=== PATIENT | male | born 1975 | race Two or more races ===

== ENCOUNTER 2020-10-18 06:08 | Emergency (ER) | payer MEDICAID, OTHER ==
[~2020-10-18] VITALS: Ht 177.8 cm; Wt 90.0 kg
--- NOTE | 2020-10-18 06:45 | NUR ---
Report from [facility], lab drawing blood. Requested urine. pt denies si/hi
[2020-10-18 06:58] LABS: BASOPHILS % (AUTO) 1 % (0-1); EOSINOPHILS % (AUTO) 0 % (1-7); LYMPHOCYTES % (AUTO) 11 % (22-44); MEAN CORPUSCULAR HEMOGLOBIN 32.5 pg (27.5-34.5); MEAN CORPUSCULAR HGB CONC 34.1 g/dL (33.2-36.2); MEAN PLATELET VOLUME 8.3 fL (7.4-10.4); MONOCYTES % (AUTO) 9 % (2-9); NEUTROPHILS % (AUTO) 79 % (42-75); PLATELET COUNT 260 x10^3/uL (130-400); RED BLOOD COUNT 4.37 x10^6/uL (4.38-5.82); RED CELL DISTRIBUTION WIDTH 13.1 % (9.4-14.8)
--- NOTE | 2020-10-18 06:59 | NUR ---
Gave large water to encourage urine sample.
[2020-10-18 07:10] LABS: ALBUMIN 3.7 g/dL (3.4-5.0); ANION GAP 5 mmol/L (5-15); CALCIUM 8.4 mg/dL (8.5-10.1); CHLORIDE 110 mmol/L (98-107)
[2020-10-18 07:13] LABS: ALANINE AMINOTRANSFERASE 29 U/L (12-78); ALKALINE PHOSPHATASE 79 U/L (45-117); BILIRUBIN,TOTAL 0.4 mg/dL (0.2-1.0); TOTAL PROTEIN 7.2 g/dL (6.4-8.2)
[2020-10-18 07:16] LABS: SALICYLATE LEVEL < 1.7 mg/dL (2.8-20.0)
--- NOTE | 2020-10-18 07:50 | NUR ---
Pt walks with steady gait to bathroom, provided urine sample. Collected/sent.
[2020-10-18 08:14] LABS: AMPHETAMINE SCREEN, URINE Negative (Negative); BARBITURATE SCREEN, URINE Negative (Negative); BENZODIAZEPINE SCREEN, URINE Negative (Negative); CANNABINOID SCREEN, URINE Negative (Negative); COCAINE SCREEN, URINE Negative (Negative); METHADONE SCREEN, URINE Negative (Negative); OPIATE SCREEN, URINE Negative (Negative)
--- NOTE | 2020-10-18 08:38 | NUR ---
Breakfast provided. Waiting for psych eval; pt denies any SI/HI.
--- NOTE | 2020-10-18 10:48 | NUR ---
Pt has friend here, pt gives permission to discuss POC. Friend told he is allowed to bring in food for pt and updated on waiting for psych OUT OF TOWN COLLECTION CLERK evaluation. Pt denies any SI/HI.
--- NOTE | 2020-10-18 11:06 | NUR ---
Pt says he was feeling suicidal like he wasn't worth living last week, he says he no longer feels that way. Pt says he lives with his parents who are "hoarders" and they "don't let me come out of my room". Pt says "I am not allowed to move out". Pt takes prozac 20-30mg but has been out lately and would like a refill. Pt has had multiple friends and family members calling the ER to check on him and pt states [place]
--- NOTE | 2020-10-18 11:46 | NUR ---
hide and skin processing worker andrae at bedside for evaluation.
--- NOTE | 2020-10-18 12:30 | NUR ---
PAVEL Marroquin here to interview.
--- NOTE | 2020-10-18 12:56 | NUR ---
Lunch provided to pt, Cara at bedside.
--- NOTE | 2020-10-18 13:00 | NUR ---
Per elizabeth pt on L2k, Room being secured belongings to storage.
--- NOTE | 2020-10-18 13:02 | NUR ---
Note undone in EDM - 10/18/20 at 1311 by [email or web address] PT PLACED ON L2K BY ADRIAN ZHAO, AFTER PT HISTORY AND ASSESSMENT. PT NOTIFIED IN POC. PT BECAME AGITATED AFTER L2K AND DOES "NOT WANT TO BE HELD". PT CALM AGAIN AT THIS TIME. CONTINUOUS MINING MACHINE OPERATOR CASEY NOTIFIED OF NEED FOR SITTER. PT ROOM SECURED FOR PT AND STAFF SAFETY AT THIS TIME. PT BELONGINGS COLLECTED AND PLACED IN 1 OF 1 BAGS AND BELONGINGS LOCKED IN SECURE STORAGE. PT DENIES ANY OTHER NEEDS AT THIS TIME. AWAITING NEW ORDERS.
--- NOTE | 2020-10-18 13:05 | NUR ---
Report to LILI Ahumada
--- NOTE | 2020-10-18 13:11 | NUR ---
PT PLACED ON L2K BY ADRIAN ZHAO, AFTER PT HISTORY AND ASSESSMENT. PT NOTIFIED IN POC. PT BECAME AGITATED AFTER L2K AND DOES "NOT WANT TO BE HELD". PT CALM AGAIN AT THIS TIME. FORCER MAKER SOCORRO NOTIFIED OF NEED FOR SITTER. PT ROOM SECURED FOR PT AND STAFF SAFETY AT THIS TIME. PT BELONGINGS COLLECTED AND PLACED IN 1 OF 1 BAGS AND BELONGINGS LOCKED IN SECURE STORAGE. PT DENIES ANY OTHER NEEDS AT THIS TIME. AWAITING NEW ORDERS.
[2020-10-18] MEDS ORDERED: HALOPERIDOL 5 MG TABLET ONE (13:24)
--- NOTE | 2020-10-18 13:28 | NUR ---
REPORT OF PT FROM LILI REN. ASSUMING CARE OF PT AT THIS TIME. PT MEDICATED PER MAY.
[2020-10-18] MEDS ORDERED: HALOPERIDOL 5 MG TABLET PO ONE (13:30)
[2020-10-18] MEDS ORDERED: BENZTROPINE 1 MG TABLET PO ONE (13:30)
[2020-10-18] MEDS ORDERED: BENZTROPINE 1 MG TABLET ONE (13:40)
--- NOTE | 2020-10-18 13:41 | NUR ---
PT MEDICATED PER MAR.
--- NOTE | 2020-10-18 14:25 | NUR ---
PT ASLEEP IN [facility] AT THIS TIME;
--- NOTE | 2020-10-18 15:56 | NUR ---
Throughput RN: pt has been medically cleared. patient is self pay. information faxed to [facility]
--- NOTE | 2020-10-18 16:34 | NUR ---
PT ASLEEP IN [facility] AT THIS TIME; KANE. SITTER OUTSIDE OF PT ROOM FOR DIRECT OBSERVATION OF PT. PER MAURO CAMPBELL, PT KEYS WERE SENT HOME WITH FAMILY AND ARE NOT IN PT BELONGINGS AT THIS TIME.
--- NOTE | 2020-10-18 17:16 | NUR ---
REPORT OF PT TO LILI WILKINS. ALL QUESTIONS ANSWERED.
--- NOTE | 2020-10-18 17:37 | NUR ---
REPORT FROM EROS PEREZ GIVEN PILLOW FOR COMFORT. PT TO BATHROOM. SITTER PRESENT
--- NOTE | 2020-10-18 17:59 | NUR ---
HOSPITAL BED ORDERED FOR PATIENT. MEAL TRAY GIVEN
--- NOTE | 2020-10-18 18:59 | NUR ---
PT SLEEPING IN BED, NO ACUTE DISTRESS. SITTER AT BEDSIDE WITH EYES ON PT.
--- NOTE | 2020-10-18 20:47 | NUR ---
PT SLEEPING IN BED, NO ACUTE DISTRESS. AIRWAY INTACT, GOOD AERATION AND OXYGENATION. SITTER AT BEDSIDE WITH EYES ON PT.
[2020-10-18] MEDS: ARIPIPRAZOLE 5 MG TABLET PO SCH (21:00)
[2020-10-18] MEDS ORDERED: TRAZODONE 50MG TABLET PO PRN (21:00)
--- NOTE | 2020-10-18 22:26 | NUR ---
NO CHANGE IN STATUS. PT SLEEPING AT THIS TIME, SELF POSITIONS IN BED, AND SIDERAILS UP X2 AND SITTER AT DOORWAY WITH EYES ON PT.
--- NOTE | 2020-10-18 22:52 | NUR ---
NO CHANGE IN STATUS. PT SLEEPING AT THIS TIME, SELF POSITIONS IN BED, AND SIDERAILS UP X2 AND SITTER AT DOORWAY WITH EYES ON PT
--- NOTE | 2020-10-19 00:17 | NUR ---
NO CHANGE IN STATUS. PT SLEEPING AT THIS TIME, SELF POSITIONS IN BED, AND SIDERAILS UP X2 AND SITTER AT DOORWAY WITH EYES ON PT
--- NOTE | 2020-10-19 00:57 | NUR ---
CLIENT SPECIALIST CALLED THIS RN TO THE BEDSIDE OF ROOM 3, FOUND PT SITTING IN A CHAIR NEXT TO THE PULL DOWN GATE, AND PT WAS TRYING TO LIFT IT SAYING HIS CLOTHES WERE LOCKED IN IT AND HE WANTED THEM BACK. PT TOLD TO GET BACK IN TO THE BED AND HE REFUSED, PT CONTINUES TO TRY AND RAISE THE LOCKED DAVIS THAT ARE THERE FOR SUICIDE PROTECTION AND PROTOCOL, AND REFUSED TO COMPLY. PT TOLD TO COMPLY AND GET BACK INTO BED OR SECURITY WOULD BE CALLED TO DEAL WITH PT, HE IS ON A L2K HOLD. PT STILL REFUSED, AND SECURITY CALLED TO BEDSIDE. PRIOR TO SECURITY ARRIVING, PT JUMPED IN BED, AND IS NOW PRETENDING HE DIDN'T DO ANYTHING. PT IS NOW ADVISED AND REORIENTED TO THE FACT HE IS ON A LEGAL HOLD AND IF HE LEAVES HE WILL BE SOUGHT AFTER BY [employer] AND BROUGHT BACK. PT ADVISED THAT IF HE STAYS IN BED WITH NO FURTHER AGITATION OR ATTEMPT TO REMOVE BARRIERS, THAT NO RESTRAINTS WILL BE PLACED ON PT, BUT IF HE IS AGGRESIVE AND NOT FOLLOWING COMMANDS FOR HIS SAFETY AND THE SAFETY OF THE STAFF, THAT HE WILL BE PUT INTO 4 POINT RESTRAINTS. PT SAYS HE WILL COMPLY AND LIE IN BED AND NOT BE AGGRESIVE. SECURITY IS INFORMED AND UPDATED AND LET THE PT KNOW THAT THEY WILL COME BACK IF FURTHER COMPLAINTS.
--- NOTE | 2020-10-19 01:22 | NUR ---
PTS SISTER CALLED THE ER, AND ASKED TO SPEAK TO THE RN. SHE ASKED HOW THE PT WAS DOING, AND SHE WAS ADVISED THAT WE CAN'T GIVE OUT INFORMATION, BUT I COULD LET HER KNOW THAT HE IS STABLE AND RESTING COMFORTABLY. THE SISTER SAID OK, AND WAS THANKFUL, AND THAT WAS THE END OF THE CONVERSATION. NO FURTHER QUESTIONS ASKED FROM THE SISTER.
--- NOTE | 2020-10-19 02:49 | NUR ---
PT SLEEPING AT THIS TIME, NO ACUTE DISTRESS, NO ISSUES WITH THE SITTER SINCE THE LAST TIME PT GOT UP. SITTER AT DOORWAY WITH EYES ON PT.
--- NOTE | 2020-10-19 03:16 | NUR ---
RECEIVED A CALL FROM [facility] AND THE STAFF MEMBER WANTED TO KNOW IF THIS PT IS WHITE OR . STAFF AT [facility] ADVISED AND THEY SAID THANK YOU AND WAS END OF CONVERSATION. FRENCH COMBER NOTED.
--- NOTE | 2020-10-19 04:45 | NUR ---
NO CHANGE IN STATUS. PT SLEEPING AT THIS TIME, SELF POSITIONS IN BED, AND SIDERAILS UP X2 AND SITTER AT DOORWAY WITH EYES ON PT
--- NOTE | 2020-10-19 05:11 | NUR ---
REPORT AND CARE TO RANDAL PEARSON.
--- NOTE | 2020-10-19 06:22 | NUR ---
PT SITTING ON GURNEY. NO DISTRESS. PT DENYING SI AT THIS TIME. SITTER AT DOORWAY FOR FREQUENT CHECKS.
--- NOTE | 2020-10-19 06:27 | NUR ---
PT ADMITS TO SI YESTERDAY BUT DENYING SI TODAY
--- NOTE | 2020-10-19 06:27 | NUR ---
ALL PT BELONGINGS REMOVED FROM ROOM AND PLACED IN LOCKER FOR SAFE KEEPING.
--- NOTE | 2020-10-19 06:50 | NUR ---
RECEIVED REPORT FROM RANDAL PEARSON, PLAN OF CARE DISCUSSED.
--- NOTE | 2020-10-19 07:16 | NUR ---
PT WATCHING TV, DENIES SI/SA AT THIS TIME. CALM AND COOPERATIVE. BREAKFAST ORDERED, ROOM SECURED, SITTER AT DOOR. OFFERED AM CARE TOOTHBRUSH AND WASH CLOTH, HOSPITAL BED PLACED. PT VERBALIZED NO OTHER NEEDS AT THIS TIME
--- NOTE | 2020-10-19 08:49 | NUR ---
PT SLEEPING ON AND OFF, SITTER AT BS, ROOM REMAINS SECURED. PT DENIES ANY NEEDS WHEN ASKED.
--- NOTE | 2020-10-19 09:47 | NUR ---
TASK RN NOTE: PT SLEEPING ON HOSPITAL BED, RESPS EVEN AND UNLABORED. ROOM SECURE. SITTER MONITORING FROM HALLWAY FOR SAFETY.
--- NOTE | 2020-10-19 10:03 | NUR ---
ADRIAN PARK MAINTENANCE TECHNICIAN IN ROOM WITH PATIENT
[2020-10-19] MEDS ORDERED: METHOCARBAMOL 500 MG TABLET PO PRN (11:00)
[2020-10-19] MEDS ORDERED: ARIPIPRAZOLE 2 MG TABLET PO ONE (11:00)
--- NOTE | 2020-10-19 11:06 | NUR ---
PT UP TO SHOWER WITH TECH AT DOOR. ORDERED MEAL
--- NOTE | 2020-10-19 12:40 | NUR ---
BREAK RN: PT'S SISTER CALLED FOR UPDATE ON PT. PT RESTING IN [facility] WITH EYES CLOSED AT THIS TIME, NADN AT THIS TIME.
--- NOTE | 2020-10-19 13:30 | NUR ---
PT SLEEPING CALMLY, NAD WITH EQUAL CHEST RISE/FALL, NO NEEDS AT THIS TIME, PT REMAINS IN SAFE ENVIRONMENT, SITTER IN VIEW.
[2020-10-19] MEDS ORDERED: FLUOXETINE HCL 20 MG CAPSULE ONE (14:26)
[2020-10-19] MEDS: FLUOXETINE HCL 20 MG CAPSULE PO SCH (14:34)
--- NOTE | 2020-10-19 14:46 | NUR ---
PT SITTING UP ON EOB AWAKE, CALM & COOPERATIVE, NAD, NO NEEDS AT THIS TIME, PT REMAINS IN SAFE ENVIRONMENT, SITTER IN VIEW.
--- NOTE | 2020-10-19 16:01 | NUR ---
PT STATES "I CAN'T SLEEP, I NEED SOMETHING TO HELP ME SLEEP". PT EDUCATED ON SLEEP CYCLE & PRN HS MED, PT VERBALIZED UNDERSTANDING & ASKED TO IF OK TO EXERCISE IN ROOM, PT NOW CALMLY LAYING ON HOSPITAL BED WITH EYES CLOSED, RESPONDS APPROP TO STAFF QUESTIONS, NO NEEDS AT THIS TIME, PT REMAINS IN SAFE ENVIRONMENT, SITTER IN VIEW.
--- NOTE | 2020-10-19 17:04 | NUR ---
PT CONTINUES TO CALMLY LAY ON HOSPITAL BED WATCHING TV, CALM & COOPERATIVE, RESPONDS APPROP TO STAFF QUESTIONS, NO NEEDS AT THIS TIME, PT REMAINS IN SAFE ENVIRONMENT, SITTER IN VIEW.
--- NOTE | 2020-10-19 17:25 | NUR ---
DINNER TRAY GIVEN
--- NOTE | 2020-10-19 18:02 | NUR ---
PT ATE DINNER & CALMLY LAYING ON HOSPITAL BED WATCHING TV, RESPONDS APPROP TO STAFF QUESTIONS, NO NEEDS AT THIS TIME, PT REMAINS IN SAFE ENVIRONMENT, SITTER IN VIEW.
--- NOTE | 2020-10-19 18:55 | NUR ---
REPORT GIVEN TO JANE PEARSON
[2020-10-19] MEDS ORDERED: TRAZODONE 50MG TABLET ONE (19:15)
[2020-10-19] MEDS ORDERED: ARIPIPRAZOLE 5 MG TABLET ONE (19:15)
[2020-10-19] MEDS: ARIPIPRAZOLE 5 MG TABLET PO SCH (19:45)
--- NOTE | 2020-10-19 21:36 | NUR ---
PT SLEEPING IN BED, RESP EVEN/UNLABORED. NO S/S OF DISTRESS. IN LINE OFS IGHT OF SITTER
--- NOTE | 2020-10-19 23:30 | NUR ---
PT RESTING IN BED, RESP EVEN AND UNLABORED. IN LINE OF SIGHT OF WANDATER
--- NOTE | 2020-10-20 00:18 | NUR ---
PT AMBULATED TO RESTROOM. DENIES ANY NEEDS AT THIS TIME. IN LINE OF SIGHT OF SITTER
--- NOTE | 2020-10-20 03:20 | NUR ---
PT RESTING IN GURNEY, RESP EVEN/UNALBORED. IN LINE OF SIGHT OF SITTER
--- NOTE | 2020-10-20 06:50 | NUR ---
report given to zully smith
--- NOTE | 2020-10-20 07:16 | NUR ---
PT RESTING IN BED AT THIS TIME. SITTER AT DOOR.
[2020-10-20] MEDS ORDERED: FLUOXETINE HCL 20 MG CAPSULE ONE (08:33)
[2020-10-20] MEDS: FLUOXETINE HCL 20 MG CAPSULE PO SCH (08:41)
--- NOTE | 2020-10-20 08:50 | NUR ---
PT COOPERATIVE WITH ASSESSMENT AND MEDS. PT REFUSED BREAKFAST. PT STATED HE WAS NOT HUNGRY NOR THIRSTY. WILL CONTINUE TO MONITOR. PT HAS BEEN UP TO USE THE PHONE X2. SITTER AT DOOR.
--- NOTE | 2020-10-20 09:02 | NUR ---
PT RESTING CALMLY IN BED AT THIS TIME. WILL CONTINUE TO MONITOR. SITTER AT DOOR.
--- NOTE | 2020-10-20 09:43 | NUR ---
pt parents here to visit with pt. pt okayed for them to come into room.
--- NOTE | 2020-10-20 10:03 | NUR ---
PSYCH COURT ASSISTANT IN SEEING PT AT THIS TIME WITH PARENTS AT BEDSIDE.
--- NOTE | 2020-10-20 11:18 | NUR ---
BREAK RN: PT LAYING ON GURNEY SLEEPING CALMLY, NO NEEDS AT THIS TIME, NAD WITH EQUAL CHEST RISE/FALL, PT REMAINS IN SAFE ENVIRONMENT, SITTER IN VIEW.
--- NOTE | 2020-10-20 11:35 | NUR ---
BREAK RN: ELHAM FROM [facility] CALLED, REQUESTED BP "MORE CONTROLLED" PRIOR TO BEING ACCEPTED- PRIMARY RN NOTIFIED PT HAS PRN BP AVAILABLE, [facility] TENTATIVELY ACCEPTED FOR [address] [place] APPROVAL;PRIMARY RN, TP RN & CHARGE AWARE.
--- NOTE | 2020-10-20 12:50 | NUR ---
PT REFUSING LUNCH TRAY. PT ASKED FOR DECAF COFFEE INSTEAD. PT ALSO GIVEN SOCKS PER REQUEST. PT HAS BEEN UP TO THE PHONE X 2 RECENTLY. PT CALM AND COOPERATIVE AT THIS TIME. PT CONTINUES TO ASK WHEN HE IS GOING HOME. PT INFORMED THAT THE PSYCH SOFTWARE TOOLS DEVELOPER HERE EARLIER WAS THE ONE TO MAKE THAT DETERMINATION. PT THEN SAT QUIETLY IN BED WITH HEAD DOWN. SITTER AT DOOR. WILL CONTINUE TO MONITOR.
--- NOTE | 2020-10-20 13:29 | NUR ---
PT HAS BEEN MEDICATED FOR ELEVATED BP PER EMAR. SPOKE WITH ELHAM AT [facility] WHO STATED THEY WILL ACCEPT PT. THROUGHPUT RN AWARE.
[2020-10-20 13:42] VITALS: BP 152/92
== END 2020-10-20 15:10 ==
LOC: ED 12:33 → EDIP 12:38 → INTOOBSV 12:38 → UNDOADMOB 12:38 → ED 10-20 15:10
DX: F33.9 Major depressive disorder, recurrent, unspecified (principal); R45.851 Suicidal ideations; T22.111A Burn of first degree of right forearm, initial encounter; T31.0 Burns involving less than 10% of body surface; F23 Brief psychotic disorder; F17.200 Nicotine dependence, unspecified, uncomplicated; X08.8XXA Exposure to other specified smoke, fire and flames, initial encounter; Y93.89 Activity, other specified; Y92.89 Other specified places as the place of occurrence of the external cause; Y99.8 Other external cause status
CPT/HCPCS: 36415; 80053; 80299; 80307; 80320; 80329; 85025; G0480

== ENCOUNTER 2020-11-02 17:04 | Emergency (ER) | payer MEDICAID ==
[~2020-11-02] VITALS: Ht 172.7 cm; Wt 85.0 kg
[2020-11-02 18:30] VITALS: BP 145/86
--- NOTE | 2020-11-02 18:40 | NUR ---
PT BIB EMS FOR PSYCHOSIS. PER EMS "HE WAS FOUND BY THE POLICE AFTER HE PULLED HIS CAR OVER TO THE SIDE OF THE ROAD AND WAS OUTSIDE SCREAMING NONSENSE. SWEATING. HE WASNT MAKING ANY SENSE OF HIS WORDS". EMS ADM 2MG VERSED IV. PT ARRIVED IN 4 PT RESTRAINTS FOR HIS SAFETY. PT HAS BEEN CALM AND COOPERATIVE THUS FAR. PT STATES "I WANTED TO HURT MYSELF EARLIER. I CUT MY WRISTS WITH A RAZOR BLADE TO PROOVE TO THE DEVIL I COULD KILL MYSELF AND I HAVE THE POWER" PT HAS VERY SUPERFICIAL ABRASIONS TO RIGHT WRISTS. PT BELONGINGS HAVE BEEN PLACED IN SECURITY LOCKER WITH A PSA OUTSIDE OF ROOM WITH A CLEAR LINE OF SIGHT
--- NOTE | 2020-11-02 19:27 | NUR ---
DR. ANDRADE MANCILLAED FOR PATIENT TO DISCHARGE HOME. PATIENT IS NOT A PSYCHIATRIC HOLD ACCORDING TO .
--- NOTE | 2020-11-02 19:28 | NUR ---
PATIENT DID NOT WANT TO WAIT FOR DISCHARGE VS TO BE TAKEN PRIOR TO DISCHARGE
== END 2020-11-02 19:31 | disposition home or self-care (01) ==
LOC: ED 19:27
DX: F32.9 Major depressive disorder, single episode, unspecified (principal); Z72.9 Problem related to lifestyle, unspecified
CPT/HCPCS: 99283

== ENCOUNTER 2020-11-19 00:52 | Emergency (ER) | payer MEDICAID ==
[~2020-11-19] VITALS: Ht 167.6 cm; Wt 90.0 kg
[2020-11-19 00:53] VITALS: BP 156/106
[2020-11-19] MEDS ORDERED: OLANZAPINE 5 MG TABLET ONE (01:20)
[2020-11-19] MEDS ORDERED: OLANZAPINE 5 MG TABLET PO ONE (01:30)
--- NOTE | 2020-11-19 01:43 | NUR ---
SPOKE WITH PT AND PROVIDER PT STATES HIS MAIN ISSUE IS NOT GETTING HIS MEDS FILLED AND BEING ON A LEGAL HOLD 2 TIMES IN A SHORT PERIOD OF TIME. PT STATES HE WANTS TO GO TO [place] [employer] AND BOTH ERP AND PT AGREE PT TO CHECK IN VOLUNTARILY IN THE MORNING. PT MEDICATED IN THE EMAR FOR HOME MEDS. PT PROVIDED WITH TAXI VOUCHER BACK HOME.
== END 2020-11-19 01:46 | disposition home or self-care (01) ==
LOC: ED 01:16
DX: F32.9 Major depressive disorder, single episode, unspecified (principal)
CPT/HCPCS: 99285; Q0177; 99283